=== PATIENT | female | born 1980 | race Caucasian/White ===

== ENCOUNTER → 2019-07-13 | Outpatient (CLI) | payer BC ==
--- NOTE | 2019-07-14 07:50 | MR ---
EXAMINATION TYPE: MR sacroiliac joints wo con DATE OF EXAM: 07/13/2019 COMPARISON: None. HISTORY: Back pain, Ankylosing spondylitis of multiple sites Standard multiplanar, multisequence MRI departmental protocol Multiplanar, multisequence images of the pelvis were acquired. Images were performed focusing on sacr oiliac joints. FINDINGS: Bilateral sacroiliac joints show some areas of asymmetric moderate narrowing bilaterally. T here is no suspicious osseous edema on current exam. Some areas of sclerosis are present with low T1 and T2 signal. There is incidental 2.5 cm oval left intramural fibroid within visualized uterus axial image 13. Both ovaries are seen with scattered peripheral follicles. IMPRESSION: MRI findings to reflect product of chronic inflammation. No MRI evidence for acute sacroi liitis.
== END | disposition home or self-care (01) ==
LOC: RADMRIMAIN 19:39
PROVIDERS: ATTEND Internal Medicine Rheumatology
DX: M45.0 Ankylosing spondylitis of multiple sites in spine (principal)
CPT/HCPCS: 72195

== ENCOUNTER → 2019-11-16 | Outpatient (CLI) | payer BC ==
--- NOTE | 2019-11-16 09:51 | US ---
EXAMINATION TYPE: US venous doppler duplex LE DATE OF EXAM: 11/16/2019 9:40 AM COMPARISON: NONE CLINICAL HISTORY: R60.0 Edema of lower extremity. Edema and pain SIDE PERFORMED: Left TECHNIQUE: The lower extremity deep venous system is examined utilizing real time linear array sonog linda with graded compression, doppler sonography and color-flow sonography. VESSELS IMAGED: External Iliac Vein (EIV) Common Femoral Vein Deep Femoral Vein Greater Saphenous Vein * Femoral Vein Popliteal Vein Small Saphenous Vein * Proximal Calf Veins (* superficial vessels) Left Leg: Negative for DVT Bakers cyst seen left knee 5.8 x 2.0 x 2.5 cm. IMPRESSION: 1. No diagnostic evidence of DVT 2. There is a 5.8 cm popliteal fossa cyst.
== END | disposition home or self-care (01) ==
LOC: RADUSWWP 09:15
PROVIDERS: ATTEND Family Medicine
DX: M71.22 Synovial cyst of popliteal space [Baker], left knee (principal)

== ENCOUNTER → 2022-01-22 | Outpatient (CLI) | payer OTHER ==
--- NOTE | 2022-01-24 08:47 | MM ---
Reason for exam: screening (asymptomatic). Baseline mammogram. History: Patient is nulliparous. Taking hormonal contraceptives for 9 years beginning at age 32. Physical Findings: A clinical breast exam by your physician is recommended on an annual basis and results should be correlated with mammographic findings. MG Screening Mammo w CAD Bilateral CC and MLO view(s) were taken. There are scattered fibroglandular densities. There is no discrete abnormality. ASSESSMENT: Negative, BI-RAD 1 RECOMMENDATION: Routine screening mammogram of both breasts in 1 year.
== END | disposition home or self-care (01) ==
LOC: RADMAMWWP 10:51
PROVIDERS: ATTEND Family Medicine
DX: Z12.39 Encounter for other screening for malignant neoplasm of breast (principal)
CPT/HCPCS: 77067

== ENCOUNTER → 2022-06-11 | Outpatient (CLI) | payer OTHER ==
--- NOTE | 2022-06-11 15:41 | P.SLEEP ---
History of Present Illness DATE: 2021 CONSULTATION/NEW PATIENT EVALUATION HISTORY OF PRESENT ILLNESS/SLEEP-WAKE EVALUATION: 42 year old lady had been evaluated in the sleep center for possible obstructive sleep apnea hypopnea syndrome. SLEEP SCHEDULE: Usually sleep schedule on weekdays 8 PMmidnight until 58 AM, during days off 1011 PM to 8 AM. FALLING ASLEEP: Patient has problems with the falling asleep, has TV set and bedroom. DURING SLEEP: She sleeps in different positions, with snoring, grinding teeth, sleep talking, multiple awakenings from sleep up to 4 times with 1 episode of nocturia. Significant amount of movements during the sleep. No history of hypnogogical hallucinations, sleep paralysis, or cataplexy. DURING THE DAY/WAKE STATE: In the morning patient wake up tired, falling asleep during the day, has episodes of irritability. Goree sleepiness scale is 6. Usually she doesn't take any naps. PAST MEDICAL HISTORY: Hypertension, scoliosis, hypothyroidism. PAST SURGICAL HISTORY: Cholecystectomy, left knee arthroscopic surgery. MEDICATIONS: Etodolac 600 mg once a day, Levonor, amlodipine 10 mg once a day, Synthroid 150 g once a day, duloxetine 30 mg once a day. SOCIAL HISTORY: No history of smoking, alcohol consumption occasional. FAMILY HISTORY: Hypertension, heart problems, snoring. REVIEW OF SYSTEMS: Snoring, multiple awakenings from sleep. No fevers. No double vision. No recent chest pain. No shortness of breath. No abdominal pain. No bleeding episodes. No blood in urine. No seizure episodes. PHYSICAL EXAMINATION: GENERAL: A pleasant patient without any distress. VITAL SIGNS: BP 151/93 , HR 85 , RR 18 , weight 186.4 pounds, height 5 foot half inches, body mass index 35.7 . HEENT: PERRLA, EOMI. Evaluation of oropharynx showed tongue protrudes midline, low position of soft palate Mallampati 4. NECK: Supple. No JVD. Thyroid is not palpable. 15 inches in circumference. LUNGS: Clear to percussion and to auscultation. Good air exchange. No wheezing or rhonchi. HEART: S1, S2 regular. No murmurs, gallops or rubs. ABDOMEN: Soft and nontender. Bowel sounds are present. No organomegaly appreciated. EXTREMITIES: No clubbing or cyanosis. [employer]: Awake, alert, and oriented x3. Cranial nerves 2 to 7 intact. There is no fasciculation or atrophy noted. No focal deficits observed. ASSESSMENT: 1. Snoring, multiple awakenings from sleep, extremely low position of soft palate. Obstructive sleep apnea hypopnea syndrome. 2. Obesity BMI 35.7. 3 hypertension. 4. Scoliosis. 5 hypothyroidism. 6. Status post left knee arthroscopic surgery. 7. Status post cholecystectomy. PLAN: 1. Polysomnography for evaluation of patient's breathing during sleep. 2. CPAP/BiPAP titration if sleep study confirms obstructive sleep apnea- hypopnea syndrome. 3. Preferable position during sleep on the side. 4. No driving if patient feels any sleepiness. Patient is aware of civil and criminal liability for unsafe driving. 5. Sleep hygiene with regular sleep time for at least 7.5-8 hours. 6. Watching and losing weight. Thank you very much for referring this patient for consultation. Sincerely, Esteban Smith MD, PhD, FAASM. Diplomat of [place] [employer], Sleep Medicine Board by [place] [employer] [place] [employer] [facility] Note - Sleep Note Sleep Note: Temperature: Pulse Rate: Respiratory Rate: Blood Pressure: SpO2: Height: Weight: BMI: Neck Circumference:
== END | disposition home or self-care (01) ==
LOC: SLEEP 14:58
PROVIDERS: ATTEND Internal Medicine
DX: G47.33 Obstructive sleep apnea (adult) (pediatric) (principal); E66.9 Obesity, unspecified; Z68.35 Body mass index [BMI] 35.0-35.9, adult; I10 Essential (primary) hypertension; M41.9 Scoliosis, unspecified; E03.9 Hypothyroidism, unspecified; Z98.890 Other specified postprocedural states; Z90.49 Acquired absence of other specified parts of digestive tract
CPT/HCPCS: 99211

== ENCOUNTER → 2023-03-17 | Outpatient (CLI) | payer OTHER ==
--- NOTE | 2023-03-17 16:57 | P.SLEEP ---
History of Present Illness H&P Date: 03/17/23 This is a 42-year-old female patient , suffering from chronic fatigue and tiredness and some degree of sleepiness. The patient was seen in consultation by Dr. Smith, and she was advised to undergo polysomnography. Nevertheless, the patient wanted to come and talk to me for a second opinion. She has history of snoring. She has grinding of the teeth. She feels that her sleep quality is very poor and she never gets good sleep and she wakes up constantly in the middle of the night. She feels tired and sleepy during the day. She goes to bed at around 10 PM. She wakes up at 3 AM. She is able to generate sleep following that and she may sleep a few more hours. 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 Her current Harold score is at 6. Her weight is essentially stable over the years although she has gained some weight. She has history of ankylosing spondylitis. She takes anti-inflammatory medication for pain control. She has hypertension and hypothyroidism as comorbid conditions. She has no Restasis and lower extremities. No sleep paralysis. No cataplexy. No hallucinations. No substance abuse. No alcoholism. Other comorbid conditions include hypertension, hypothyroidism. Review of Systems Constitutional: Reports daytime sleepiness, Reports fatigue Eyes: denies as per HPI, denies blurred vision, denies bulging eye, denies decreased vision, denies diplopia, denies discharge, denies dry eye, denies irritation, denies itching, denies pain, denies photophobia, denies loss of peripheral vision, denies loss of vision, denies tunnel vision/blind spots Ears: deny: decreased hearing, ear discharge, earache, tinnitus Ears, nose, mouth and throat: Reports as per HPI Breasts: absent: as per HPI, change in shape, gynecomastia, masses, nipple discharge, pain, skin changes, swelling Cardiovascular: Reports as per HPI Respiratory: Reports as per HPI Gastrointestinal: Reports as per HPI Genitourinary: Reports as per HPI Menstruation: Reports as per HPI Musculoskeletal: Reports as per HPI (Back pain) Musculoskeletal: absent: ankle pain, ankle stiffness, ankle swelling Integumentary: Reports as per HPI Neurological: Reports as per HPI Psychiatric: Reports as per HPI Endocrine: Reports as per HPI Hematologic/Lymphatic: Reports as per HPI Past Medical History Additional Past Medical History / Comment(s): Ankylosing spondylitis, hypertensi on, hypothyroidism, history of scoliosis, obesity Past Surgical History: Cholecystectomy Additional Past Surgical History / Comment(s): Knee surgery back in 2008 Medications and Allergies Home Medications and Allergies Comment(s): Amlodipine 10 mg by mouth daily, levothyroxin 150 mg by mouth daily, Cymbalta 30 mg by mouth daily and control pills. Physical Exam BP is 167/92, pulse is 77, respirations 12, temperature 97.5 and a saturation 99% on room air oxygen. Body weight is 189. BMI is 36.9. The side of the neck is 16.5 inches The patient appeared well nourished and normally developed. Vital signs as documented. Head exam is unremarkable. No scleral icterus or corneal arcus noted. Neck is without jugular venous distension, thyromegaly, or carotid bruits. Carotid upstrokes are brisk bilaterally. The patient is a Mallampati class IV with significant crowding of posterior pharynx Lungs are clear to auscultation and percussion. Cardiac exam reveals the PMI to be normally sized and situated. Rhythm is regular. First and second heart sounds normal. No murmurs, rubs or gallops. Abdominal exam reveals normal bowel sounds, no masses, no organomegaly and no aortic enlargement. Extremities are nonedematous and both femoral and pedal pulses are normal.Examination of the skin revealed no evidence of significant rashes, suspicious appearing nevi or other concerning lesions.Neurologically, the patient is awake and alert and the patient does not have any focal neurological deficit. Cranial nerves are essentially intact. Assessment and Plan Plan: Chronic fatigue/sleepiness with an Harold score of 6, consider the possibility of obstructive sleep apnea. The patient states that her sleep quality is poor and she has excessive sleep fragmentation. Snoring Ankylosing spondylitis Hypertension Hypothyroidism Plan Proceed with screening polysomnography to evaluate for sleep breathing disorder, sleep architecture and maintenance Implement good sleep hygiene measures Maintain regular sleep schedule We'll continue to follow and will make further recommendations based on the results of the sleep study. Sleep Note - Sleep Note Sleep Note: Temperature: Pulse Rate: Respiratory Rate: Blood Pressure: SpO2: Height: Weight: BMI: Neck Circumference:
== END ==
LOC: SLEEP 14:22
PROVIDERS: ATTEND Internal Medicine Critical Care Medicine
DX: G47.33 Obstructive sleep apnea (adult) (pediatric) (principal); I10 Essential (primary) hypertension; E03.9 Hypothyroidism, unspecified; M45.9 Ankylosing spondylitis of unspecified sites in spine; Z99.89 Dependence on other enabling machines and devices
CPT/HCPCS: 99211

== ENCOUNTER 2023-04-14 19:27 | Outpatient (CLI) | payer OTHER | END 2023-04-15 23:59 | LOC: 3 N SLEEP 19:27 | PROVIDERS: ATTEND Internal Medicine Critical Care Medicine | DX: G47.33 Obstructive sleep apnea (adult) (pediatric) (principal) | CPT/HCPCS: 95810 ==

== ENCOUNTER → 2024-12-16 | Outpatient (CLI) | payer OTHER ==
--- NOTE | 2024-12-16 13:51 | US ---
EXAMINATION TYPE: US carotid duplex BILAT DATE OF EXAM: 12/16/2024 COMPARISON: US 2011 CLINICAL INDICATION: Female, 44 years old with history of Z82.49 FAMILY HX OF ISCHEM HEART DIS AND OT H DIS O; TECHNIQUE: Grayscale, color Doppler and spectral Doppler evaluation of the bilateral carotid systems and vertebral arteries. Indirect Doppler criteria was utilized. FINDINGS: EXAM MEASUREMENTS: RIGHT: Peak Systolic Velocity (PSV) cm/sec ----- Right CCA: 79.8 ----- Right ICA: 118.0 ----- Right ECA: 118.0 ICA/CCA ratio: 1.5 RIGHT: End Diastole cm/sec ----- Right CCA: 22.6 ----- Right ICA: 55.8 ----- Right ECA: 27.6 LEFT: Peak Systolic Velocity (PSV) cm/sec ----- Left CCA: 88.6 ----- Left ICA: 118.8 ----- Left ECA: 105.5 ICA/CCA ratio: 1.3 LEFT: End Diastole cm/sec ----- Left CCA: 31.4 ----- Left ICA: 53.4 ----- Left ECA: 19.6 VERTEBRALS (direction of flow): Right Vertebral: Antegrade Left Vertebral: Antegrade Rhythm: Normal IMPRESSION: No evidence of hemodynamically significant stenosis. Criteria for Assigning % of Stenosis / Diameter reduction (Estimation based on the indirect measurements of the internal carotid artery velocities (ICA PSV). 1. Normal (no stenosis)=ICA PSV < 125 cm/s: ratio < 2.0: ICA EDV<40 cm/s. 2. Less than 50% stenosis=ICA PSV < 125 cm/s: ratio < 2.0: ICA EDV<40 cm/s. 3. 50 to 69% stenosis=ICA PSV of 125 to 230 cm/s: ration 2.0 ? 4.0: ICA EDV 40-100 cm/s. 4. Greater than 70% stenosis to near occlusion= ICA PSV > 230 cm/s: ratio > 4.0: ICA EDV > 100 cm/s. 5. Near occlusion= ICA PSV velocities may be low or undetectable: variable ratio and ICA EDV. 6. Total occlusion=unable to detect flow. [facility], , 12/16/2024 1:49 PM
== END | disposition home or self-care (01) ==
LOC: RADUSWWP 13:14
PROVIDERS: ATTEND Family Medicine
DX: Z82.49 Family history of ischemic heart disease and other diseases of the circulatory system (principal)
CPT/HCPCS: 93880